=== PATIENT | female | born 1985 | race Caucasian/White ===

== ENCOUNTER 2017-01-07 11:32 | Emergency (ER) | payer OTHER ==
[~2017-01-07] VITALS: Ht 157.5 cm; Wt 66.0 kg
[2017-01-07 12:00] LABS: BASOPHILS % (AUTO) 1 % (0-2); EOSINOPHILS # (AUTO) 0.1 10^3uL; EOSINOPHILS % (AUTO) 1 % (0-4); LYMPHOCYTES # (AUTO) 1.6 X10^3; MEAN CORPUSCULAR HEMOGLOBIN 29.1 PG (26.0-34.0); MEAN CORPUSCULAR HGB CONC 34.5 g/dL (31.0-37.0); MEAN CORPUSCULAR VOLUME 84 FL (80-100); MEAN PLATELET VOLUME 10.6 FL (6.0-9.5); MONOCYTES # (AUTO) 0.5 X10^3; MONOCYTES % (AUTO) 14 % (3-11); NEUTROPHILS # (AUTO) 1.6 X10^3; NEUTROPHILS % (AUTO) 42 % (51-67); PLATELET COUNT 208 10^3uL (150-450); WHITE BLOOD COUNT 3.83 10^3uL (4.0-11.0)
[2017-01-07 12:04] LABS: BILIRUBIN,URINE Negative (Negative); CLARITY,URINE Cloudy; GLUCOSE, URINE (UA) Negative (Negative); LEUKOCYTE ESTERASE ,URINE Negative (Negative); PH,URINE 6.5 (5.0 - 8.0); UROBILINOGEN,URINE 0.2 mg/dL (0.2-1.0)
[2017-01-07 12:15] LABS: AMPHETAMINE SCREEN, URINE Negative (Negative); CANNABINOID SCREEN, URINE Negative (Negative); METHAMPHETAMINE SCREEN URINE S NEGATIVE (NEGATIVE); OPIATE SCREEN URINE Negative (Negative); PROPOXYPHENE STAT NEGATIVE (NEGATIVE)
[2017-01-07 12:16] LABS: ALBUMIN 4.6 g/dL (3.4-5.0); ALKALINE PHOSPHATASE 71 U/L (38-126); ANION GAP 17.3 MEQ/L (3-15); BUN/CREATININE RATIO 17 (10-20); CALCULATED IONIZED CALCIUM 3.9 mg/dL (3.8-4.6); TOTAL PROTEIN 7.7 g/dL (6.4-8.5)
[2017-01-07 12:18] LABS: COLOR,URINE Dark Yellow; RBC,URINE 20-50 /HPF; URINE CENTRIFUGED VOLUME 12 mL
[2017-01-07 13:16] VITALS: BP 112/81
== END 2017-01-07 13:15 | disposition home or self-care (01) ==
LOC: EDUNIT# 11:32 → ED 11:34
DX: R55 Syncope and collapse (principal); R06.4 Hyperventilation
CPT/HCPCS: 36415; 80053; 80307; 81003; 81015; 84443; 84484; 84703; 85025; 86140; 99282; 99284

== ENCOUNTER → 2017-01-07 | Outpatient (CLI) | payer OTHER | LOC: EMS 11:25 | PROVIDERS: ATTEND Family Medicine | DX: R55 Syncope and collapse (principal); R42 Dizziness and giddiness; R11.0 Nausea; R20.2 Paresthesia of skin ==